=== PATIENT | male | born 1940 | race Caucasian/White ===

== ENCOUNTER 2018-02-06 23:29 | Inpatient (IN) ==
--- NOTE | 2018-02-07 00:25 | Emergency Department Note ---
Disposition Clinical Impression: Chest pain, rule out acute myocardial infarction, NSTEMI (non-ST elevated myocardial infarction) Disposition: Admitted As Inpatient Condition: Fair Referrals: Chris Chinchilla MD [Primary Care Provider] - Forms: ED Satisfaction Letter Time of Disposition: 01:26 Chest Pain HPI - General Chief Complaint: ED Chest Pain Stated Complaint: Cp/headache Time Seen by Provider: 02/06/18 23:37 Source: patient Limitations: no limitations Vital Signs Reviewed: Yes Nursing Notes Reviewed: Yes - History of Present Illness HPI Narrative: Patient is a 77-year-old male who presents to [facility] ED with a chief complaint of chest pain. States his symptoms started earlier today when he was standing in the kitchen. States he started getting flushed and felt warm and then got a headache so he took 2 aspirin. States the headache resolved but he then got sharp chest pains. States this was intermittent. He is currently chest pain-free. Patient was recently seen at [facility] and was hospitalized at [facility]. States he stayed there for 2 days and never saw any physician so he signed himself out AGAINST MEDICAL ADVICE. Pt complaint: chest pain Onset (ago): hour(s) Duration: intermittent Onset: during rest Pain Location: left chest Severity scale (1-10): 0 - Related Data Home Medications Medication Instructions Recorded Confirmed Albuterol Sulfate [Proair 90 mcg IH Q2H PRN 05/31/15 08/30/16 Respiclick] Atorvastatin [Lipitor] 10 mg PO DAILY 05/31/15 02/03/18 Esomeprazole Magnesium [Nexium] 40 mg PO DAILY 05/31/15 02/03/18 Nitroglycerin [Nitrostat] 0.4 mg SL Q5-6MIN PRN 05/31/15 02/03/18 Spironolactone [Aldactone] 25 mg PO BID 05/31/15 02/03/18 Tamsulosin [Flomax] 0.4 mg PO DAILY 05/31/15 02/03/18 clonazePAM [Klonopin] 0.5 mg PO HS 05/31/15 02/03/18 predniSONE [PredniSONE] 2 mg PO DAILY 05/31/15 02/03/18 Aspirin Buffered 325 mg Tab 1 tab PO DAILY 02/03/18 02/03/18 Allergies Allergy/AdvReac Type Severity Reaction Status Date / Time Iodinated Contrast- Oral and Allergy Swelling Verified 05/31/15 08:21 IV Dye of [Iodinated Contrast Media - Lip/Tongue/Throat IV Dye] All systems ED: reviewed and negative except as stated. Chest Pain PMH - Past Medical History Medical history: Reports: COPD, coronary artery disease, hyperlipidemia, hypertension, myocardial infarction, other Surgical history: Reports: coronary bypass (CABG) Psychiatric history: Reports: anxiety, depression - Social History Smoking Status: Former smoker Alcohol use: Reports: none Drug use: Reports: none Physical Exam - General Limitations: no limitations General appearance: alert, in no apparent distress - Head Head exam: atraumatic, normocephalic, normal inspection - Eye Eye exam: Present: EOMI - ENT ENT exam: normal exam, normal oropharynx, mucous membranes moist - Neck Neck exam: Present: normal inspection, full ROM, trachea midline - Chest Chest inspection: Present: normal inspection, symmetric chest wall rise - Respiratory Respiratory exam: Present: normal lung sounds bilaterally - Cardiovascular Cardiovascular exam: Present: regular rate, normal rhythm, normal heart sounds - Abdominal Exam Abdominal exam: Present: soft, Non-Tender. Absent: tenderness, distention, guarding, rebound, rigidity - Extremities Exam Extremities exam: Present: normal inspection, full ROM. Absent: tenderness, pedal edema - Neurological Exam Neurological exam: Present: alert, oriented X3 - Psychiatric Psychiatric exam: Present: normal affect, normal mood - Skin Skin exam: Present: warm, dry, intact, normal color Course Course Narrative: Patient seen and examined. Chest pain since earlier today. Patient did have a headache at the time but this has resolved. Cardiopulmonary workup initiated. - Reevaluation(s) Reevaluation #1: Troponin elevated at 0.14. This appears unchanged from 3 days ago when it was elevated on February 03. His EKG shows signs of inferior lateral ST depression but this also appears unchanged. I discussed with the mortuary beautician Dr. Octavio Mcmillan who does recommend putting patient on a heparin drip. This has been ordered. We will admit to hospitalist for NSTEMI. Time: 01:24 Reevaluation #2: Discussed with the hospitalist Dr. Eldridge who has accepted patient for admission. Time: 01:55 Vital Signs Temperature 97.9 F 02/06/18 23:39 Pulse Rate 66 02/06/18 23:39 Respiratory Rate 16 02/06/18 23:39 Blood Pressure 168/66 02/06/18 23:39 O2 Sat by Pulse Oximetry 96 02/06/18 23:39 Temperature 97.9 F 02/06/18 23:39 Pulse Rate 61 02/07/18 01:52 Respiratory Rate 16 02/07/18 01:52 Blood Pressure 145/88 02/07/18 01:52 O2 Sat by Pulse Oximetry 96 02/07/18 01:52 Oxygen Delivery Oxygen Delivery Room Air Chest Pain - Medical Records Medical records reviewed: Yes I reviewed the patient's medical records. - Lab Data Lab results reviewed: Yes I reviewed the patient's lab results. Result diagrams: 02/07/18 00:05 02/07/18 00:05 Lab Results 02/07/18 02/07/18 02/07/18 Range/Units 00:05 00:05 00:05 WBC 7.7 (4.3-11.1) K/mcL RBC 4.37 (4.19-5.50) M/mcL Hgb 13.5 (12.9-16.9) g/dL Hct 40.0 (37.5-50.1) % MCV 91.5 (83.0-100.0) fL MCH 30.9 (28.0-33.3) pg MCHC 33.8 (31.6-35.5) g/dL RDW 13.1 (11.5-14.5) % Plt Count 163 (140-400) K/mcL MPV 9.8 (9.4-12.4) fL Immature Gran % 0.9 (0-4) % Seg Neutrophils % 57.9 % Lymphocytes % 26.4 % Monocytes % 12.2 % Eosinophils % 2.2 % Basophils % 0.4 % Neutrophils # 4.4 (1.6-8.9) K/mcL Lymphocytes # 2.0 (0.6-4.6) K/mcL Monocytes # 0.9 (0.0-1.3) K/mcL Eosinophils # 0.2 (0.0-0.6) K/mcL Basophils # 0.0 (0.0-0.2) K/mcL PT 11.6 (9.4-12.1) Seconds INR 1.0 APTT 28.6 (26.0-36.0) Seconds Sodium 137 (136-145) mEq/L Potassium 4.1 (3.5-5.1) mEq/L Chloride 106 (98-107) mEq/L Carbon Dioxide 23 (23-29) mEq/L BUN 20 (8-23) mg/dL Creatinine 1.32 H (0.70-1.30) mg/dL Est GFR ( Amer) > 60 (> 60) Est GFR (Non-Af Amer) 53 L (> 60) BUN/Creatinine Ratio 15 (6-26) Glucose 111 H (70-105) mg/dL Calculated Osmolality 287 (280-300) Calcium 8.9 (8.6-10.3) mg/dL Troponin I 0.14 H* (< 0.04) ng/mL - Radiology Data Radiology results reviewed: Yes I reviewed the patient's radiology results. Chest X-Ray 02/07/18 00:20 IMPRESSION: Stable portable study. D/ / Keisha Coker Cha, MD / Keisha Coker Cha, MD Interpreting Provider: Keisha Coker Cha, MD - EKG Data EKG attestation: Yes I reviewed and interpreted this EKG. EKG results narrative: EKG done at 2356 shows normal sinus rhythm with a rate of [address] elevation. Mild ST depression noted in leads 2, 3, aVF with inverted T waves. Also mild ST depression noted in leads V4 through V6. This appears unchanged from prior EKG done 02/03/2018. Heart Score - Score History: Slightly Suspicious EKG: Non Specific repolarisation Disturbance Age: Greater than 65 Risk Factors: Equal/Greater than 3 risk factor or history of atherosclerotic disease Troponin: Greater than 3x normal limit HEART Score Total: 7 Attestation Statement - Attestation Attestation: I, Octavio Perez, examined this patient and my medical decision-making was reviewed with the PHYSICAL THERAPIST AIDE/PA/Advanced Practice Nurse/Resident Physician. I agree with the documented findings, disposition and treatment plan as described except to the extent set forth below. 77-year-old male presents emergency Department with concerns of acute onset chest pain. Patient states he is been admitted several times over the past few months for similar pain. Patient states his enzymes were elevated 5 days ago when he was evaluated at [facility]. Patient states that from [facility] emergency department he was transferred to [facility] for further cardiology evaluation however he "did not see a physician" so he signed himself out AGAINST MEDICAL ADVICE. Patient states he was cooking today when he had acute onset of pressure in the center of his chest. He states he had not had mild associated nausea. Patient presents to the emergency department today for further evaluation. He has a history of multiple MIs in the past as well as coronary artery bypass graft surgery. Chest pain resolved after taking aspirin. Patient also noted a headache at the time of his chest pain which has also since resolved. No recent trauma. Initial EKG showed normal sinus rhythm with rate of 60 without evidence of STEMI or other dysrhythmia. We will obtain labs for further cardiac evaluation and patient will likely be admitted for further care and evaluation of possible ACS.
[2018-02-07 00:39] LABS: Prothrombin Time 11.6 Seconds (9.4-12.1)
[2018-02-07 00:42] LABS: Activated Partial Thrombo Time 28.6 Seconds (26.0-36.0)
[2018-02-07 00:51] LABS: Basophils % 0.4 %; Eosinophils # 0.2 K/mcL (0.0-0.6); Eosinophils % 2.2 %; Hemoglobin 13.5 g/dL (12.9-16.9); Immature Granulocytes % 0.9 % (0-4); Lymphocytes % 26.4 %; Mean Corpuscular HGB Conc 33.8 g/dL (31.6-35.5); Mean Corpuscular Hemoglobin 30.9 pg (28.0-33.3); Mean Corpuscular Volume 91.5 fL (83.0-100.0); Mean Platelet Volume 9.8 fL (9.4-12.4); Monocytes # 0.9 K/mcL (0.0-1.3); Monocytes % 12.2 %; Neutrophils # 4.4 K/mcL (1.6-8.9); Platelet Count 163 K/mcL (140-400); Red Blood Count 4.37 M/mcL (4.19-5.50); Red Cell Distribution Width 13.1 % (11.5-14.5); Segmented Neutrophils % 57.9 %
[2018-02-07 01:07] LABS: Chloride 106 mEq/L (98-107); Potassium 4.1 mEq/L (3.5-5.1); Sodium 137 mEq/L (136-145); Troponin I 0.14 ng/mL (< 0.04)
[2018-02-07] MEDS ORDERED: *HR* Heparin 5,000 UNIT/ML VIAL IVP PRN ×2 (01:20)
[2018-02-07] MEDS ORDERED: *HR* Heparin 5,000 UNIT/ML VIAL IVP ONE (01:20)
[2018-02-07 01:43] LABS: BUN/Creatinine Ratio 15 (6-26); Blood Urea Nitrogen 20 mg/dL (8-23); Calcium 8.9 mg/dL (8.6-10.3); Carbon Dioxide 23 mEq/L (23-29); Glucose 111 mg/dL (70-105); Osmolality,Calculated 287 (280-300); eGFR For Non-African Americans 53 (> 60)
[2018-02-07] MEDS: Heparin 25,000 UNIT/500 ML D5W 25,000 UNIT/500 ML BAG IVC SCH (01:53)
[2018-02-07] MEDS ORDERED: Naloxone 0.4 MG/ML INJ IVP PRN (04:46)
--- NOTE | 2018-02-07 08:15 | Internal Med History&Physical ---
Date of Encounter: 02/07/18 Time of Encounter: 03:30 Internal Medicine - H&P: HPI Chief complaint: NSTEMI Admitted From: Emergency Dept Plans for Post Hospital Care: Home History of present illness: Mr. Elliott is a 77 year old male Patient presented to the ER for chest pain. He states that he originally went to the [place] ER 3 days ago for chest pain, was started on a heparin drip then transferred to [facility]. He says that he was inpatient for 2 days, but left AMA because he never saw a doctor and he was frustrated. The night of his admission he says he was in the kitchen when he got a headache, started to feel hot and felt weak. His chest pain was also present, non- radiating stabbing in nature. He then called his neighbor who transported him to [place]. In the ER his troponin was elevated at 0.14, creatinine was elevated to 1.32, GFR was at baseline, chest x-ray was stable, EKG was NSR with no ST elevations but noted depressions and T wave inversions unchanged from prior EKG 02/03/18. He was started on a heparin drip, cardiology was notified, and he was admitted for further management of his chest pain. Upon my assessment, patient is resting comfortably in bed. He denies nausea, vomiting, diarrhea, constipation. His chest pain as improved. Past Med Surg Social Fam HX - Past Medical History Medical history: COPD, coronary artery disease, hyperlipidemia, hypertension, myocardial infarction, other Additional medical history: [place] last was in 2002 Psychiatric history: anxiety, depression - Past Surgical History Surgical History: coronary bypass (CABG) Additional surgical history: open heart surgery - Social History Smoking Status: Former smoker Smokeless Tobacco Status: Yes Alcohol use: none Drug use: none Internal Medicine - H&P: Meds Albuterol Sulfate [Proair Respiclick] 90 mcg IH Q2H PRN 05/31/15 [History] Atorvastatin [Lipitor] 10 mg PO DAILY 05/31/15 [History] Esomeprazole Magnesium [Nexium] 40 mg PO DAILY 05/31/15 [History] Nitroglycerin [Nitrostat] 0.4 mg SL Q5-6MIN PRN 05/31/15 [History] Spironolactone [Aldactone] 25 mg PO BID 05/31/15 [History] Tamsulosin [Flomax] 0.4 mg PO DAILY 05/31/15 [History] clonazePAM [Klonopin] 0.5 mg PO HS 05/31/15 [History] predniSONE [PredniSONE] 2 mg PO DAILY 05/31/15 [History] Aspirin Buffered 325 mg Tab 1 tab PO DAILY 02/03/18 [History] 3 Allergy/AdvReac Type Severity Reaction Status Date / Time Iodinated Contrast- Oral and Allergy Swelling Verified 02/07/18 02:33 IV Dye of [Iodinated Contrast Media - Lip/Tongue/Throat IV Dye] shellfish derived Allergy Swelling Verified 02/07/18 02:33 of Lip/Tongue/Throat All Systems PM: A 10-system review of systems was performed and is negative for pertinent findings except as documented above in the HPI. - Constitutional Vitals: Temp Pulse Resp BP Pulse Ox 97.9 F 70 18 118/54 98 02/07/18 07:23 02/07/18 07:23 02/07/18 07:23 02/07/18 07:23 02/07/18 07:23 General appearance: Present: cooperative, pleasant, answers questions appropriately Exam: as above - Eye Eye exam: Present: EOMI, normal appearance - Respiratory Respiratory exam: Present: CTAB. Absent: chest wall tenderness, respiratory distress, wheezes - Cardiovascular Cardiovascular exam: Present: RRR. Absent: diastolic murmur, systolic murmur - GI/Abdominal GI/Abdominal exam: Present: soft, no peritoneal signs. Absent: tenderness - Extremities Exam Extremities exam: Present: warm, radial pulses palpable and symmetrical. Absent : calf tenderness, joint swelling, pedal edema, tenderness - Neurological Exam Neurological exam: Present: no focal deficits, strengths equal and symetr throughout. Absent: motor sensory deficit, facial droop, speech deficit - Skin Skin exam: Present: dry, normal color, warm Internal Med - H&P Results - Labs CBC & Chem 7: 02/07/18 00:05 02/07/18 00:05 Labs: Cardiac Enzymes 02/07/18 Range/Units 05:48 Troponin I 0.15 H* (< 0.04) ng/mL - Assessment and plan (1) NSTEMI (non-ST elevated myocardial infarction) Current Visit: Yes Status: Acute Assessment and plan: Some ST changes, no elevations on EKG. Heparin drip started. Cardiology consult called from the ER. Follow up management recommendations from cardiology. Trend troponins ekg monitor tech. (2) Arthritis Current Visit: Yes Status: Acute Assessment and plan: Takes prednisone 2mg for this. Continue home meds when taking PO (3) HLD (hyperlipidemia) Current Visit: Yes Status: Acute Assessment and plan: Takes atorvastatin Hold until taking PO Qualifiers: Qualified Code(s): E78.2 - Mixed hyperlipidemia (4) GERD (gastroesophageal reflux disease) Current Visit: Yes Status: Acute Assessment and plan: Takes nexium, Hold until taking PO Qualifiers: Qualified Code(s): K21.9 - Gastro-esophageal reflux disease without esophagitis - Time Spent With Patient Total time spent is greater than 50% in coordination of care (as documented) at patient's floor/unit and/or counseling patient: 25 - 35 minutes
[2018-02-07] MEDS ORDERED: clonazePAM 0.5 MG TABLET PO PRN ×2 (10:03→12:13)
[2018-02-07] MEDS ORDERED: Aspirin 325 MG TABLET PO SCH (10:15)
[2018-02-07] MEDS: Aspirin 325 MG TABLET PO SCH (11:59)
[2018-02-07] MEDS ORDERED: Albuterol 2.5 MG/3 ML NEBULIZER IH PRN (12:13)
--- NOTE | 2018-02-07 13:21 | Event Note ---
Date of Encounter: 02/07/18 Time of Encounter: 09:50 77-year-old male with history of CAD status post CABG, COPD, hypertension, who was admitted with intermittent chest pain for the last few days. Patient was admitted to [facility] 3 days ago with similar complaints, from where he left AGAINST MEDICAL ADVICE as he claimed no Dr. came to evaluate him. Seen and examined at bedside. Currently chest pain-free. No cough, shortness of breath. Patient is very hard of hearing. Chest- S1, S2 heard; Lungs are clear to auscultation B/L NSTEMI- suspected due to symptoms suggestive of unstable angina, troponin leak around 0.15, EKG changes of T-wave inversions in inferior and lateral leads. Started on anticoagulation with IV heparin drip per cardiology recommendations. Resume aspirin, statin and beta sommer. Cardiology has been consulted, follow-up recommendations. Chronic respiratory failure on home oxygen COPD CAD status post CABG Essential hypertension Hyperlipidemia Anxiety and depression
[2018-02-07] MEDS: Budesonide/Formoterol 80/4.5 MDI IH SCH (19:46)
[2018-02-08] MEDS: Heparin 25,000 UNIT/500 ML D5W 25,000 UNIT/500 ML BAG IVC SCH (01:20)
[2018-02-08 04:50] LABS: Basophils % 0.3 %; Eosinophils # 0.2 K/mcL (0.0-0.6); Eosinophils % 2.3 %; Hematocrit 39.6 % (37.5-50.1); Hemoglobin 13.3 g/dL (12.9-16.9); Immature Granulocytes % 0.4 % (0-4); Lymphocytes % 28.8 %; Mean Corpuscular HGB Conc 33.6 g/dL (31.6-35.5); Mean Corpuscular Hemoglobin 30.8 pg (28.0-33.3); Mean Corpuscular Volume 91.7 fL (83.0-100.0); Mean Platelet Volume 9.6 fL (9.4-12.4); Monocytes # 0.8 K/mcL (0.0-1.3); Monocytes % 10.9 %; Platelet Count 144 K/mcL (140-400); Red Blood Count 4.32 M/mcL (4.19-5.50); Segmented Neutrophils % 57.3 %
[2018-02-08 05:11] LABS: BUN/Creatinine Ratio 15 (6-26); Blood Urea Nitrogen 18 mg/dL (8-23); Calcium 8.9 mg/dL (8.6-10.3); Carbon Dioxide 25 mEq/L (23-29); Chloride 107 mEq/L (98-107); Glucose 132 mg/dL (70-105); Osmolality,Calculated 292 (280-300); Sodium 139 mEq/L (136-145); eGFR For Non-African Americans > 60 (> 60)
[2018-02-08] MEDS: Budesonide/Formoterol 80/4.5 MDI IH SCH ×2 (07:58→20:16)
[2018-02-08] MEDS: *HR* Digoxin 0.125 MG TABLET PO SCH (08:11)
[2018-02-08] MEDS: Aspirin 325 MG TABLET PO SCH (08:11)
--- NOTE | 2018-02-08 12:38 | Cardiology Consult Note ---
<Reagan Tran - Last Filed: 02/08/18 12:43> Date of Encounter: 02/08/18 Time of Encounter: 11:30 Assessment and Plan (1) NSTEMI (non-ST elevated myocardial infarction) Current Visit: Yes Status: Acute Troponin elevation at 0.14, 0.14, 0.15 in patient with known CAD. EKG shows Sr with diffuse ST changes. C/o chest pain prior to admit. Now pain free. TTE pending. [facility] discussed. R/B/A reviewed and he agrees to proceed. Continue heparin gtt. Asa, statin, and bb. IV dye allergy noted. We will pre- medicate. (2) CAD (coronary artery disease) Current Visit: Yes Status: Acute H/o CABG. Continue asa, statin, and bb. Qualifiers: Coronary Disease-Associated Artery/Lesion type: [place] artery [place] vs. transplanted heart: [place] heart Associated angina: angina presence unspecified Qualified Code(s): I25.10 - Atherosclerotic heart disease of [place] coronary artery without angina pectoris Discussion w patient/family: The assessment and plan as outlined above was discussed with the patient and/or family members who expressed understanding and agreement. All questions were answered. Thank you for involving us in the care of your patient. Please call with any questions. History of Present Illness Consult date: 01/07/18 Consult reason: NSTEMI Chief complaint: Chest pain History of present illness: Mr. Elliott is a 77 year old male withpast medical history significant for multiple [place] s/p CABG, COPD, HTN, HLD who presented with the c/o intermittent SOB and chest pain since last friday. States he was seen at OSH and left AMA after he felt no one was caring for him. He then decided to come to [facility]. Cardiology consulted for chest pain and troponin elevation. He is currently pain free. Reports symptoms with minimal activity. No recent cardiac work-up. Past Med Surg Social Fam HX - Past Medical History Attestation: Yes The following information was validated with the patient. Medical history: COPD, coronary artery disease, hyperlipidemia, hypertension, myocardial infarction, other Additional medical history: [place] last was in 2002 Psychiatric history: anxiety, depression - Past Surgical History Surgical History: coronary bypass (CABG) Additional surgical history: open heart surgery - Social History Smoking Status: Former smoker Smokeless Tobacco Status: Yes Alcohol use: none Drug use: none Medications and Allergies Albuterol Neb [Proventil Neb] 2.5 mg IH QID PRN 02/07/18 [History] Albuterol Sulfate [Ventolin Hfa] 2 puff IH Q4H PRN 02/07/18 [History] Aspirin Enteric Coated [Aspirin EC] 325 mg PO DAILY 02/07/18 [History] Atorvastatin [Lipitor] 10 mg PO HS 02/07/18 [History] Carvedilol [Coreg] 6.25 mg PO DAILY 02/07/18 [History] Cholecalciferol (D-3) [Vitamin D] 1,000 unit PO DAILY 02/07/18 [History] Digoxin [Lanoxin] 0.125 mg PO DAILY 02/07/18 [History] Esomeprazole Magnesium [Nexium] 20 mg PO DAILY 02/07/18 [History] Fluticasone/Salmeterol [Advair 250-50 Diskus] 1 puff IH BID 02/07/18 [History] Methocarbamol [Robaxin] 500 mg PO QID 02/07/18 [History] Naproxen [Naprosyn] 250 mg PO BID 02/07/18 [History] PredniSONE [Negrita] 5 mg PO DAILY 02/07/18 [History] Spironolactone [Aldactone] 25 mg PO DAILY 02/07/18 [History] Tamsulosin HCl [Flomax] 0.4 mg PO DAILY 02/07/18 [History] clonazePAM [Clonazepam] 0.5 mg PO BID PRN 02/07/18 [History] 3 Allergy/AdvReac Type Severity Reaction Status Date / Time Iodinated Contrast- Oral and Allergy Swelling Verified 02/07/18 02:33 IV Dye of [Iodinated Contrast Media - Lip/Tongue/Throat IV Dye] shellfish derived Allergy Swelling Verified 02/07/18 02:33 of Lip/Tongue/Throat All Systems Review: The remainder of the systems were reviewed and are negative Physical Examination Vital Signs, Last 4 Hours Temp Pulse Resp BP Pulse Ox 02/08/18 11:09 98.2 F 69 18 117/61 97 General: Conversant, No Apparent Distress, Other (dishevealed) HEENT: Atraumatic, Normocephaly, Mucus Membranes Moist Neck: No JVD, Normal carotid pulses Cardiac: Reg Rate and Rhythm, Normal S1 and S2, No Murmur Lungs: Normal Breath Sounds, No Wheeze, Rales, Rhonchi Neuro: Alert and responsive, No focal deficits noted Abdomen: Soft, Non-Tender Skin: No rashes noted on visualized skin Musculoskeletal: No Chest Wall Tenderness Extremities: No Clubbing, No Cyanosis, No Edema, Normal Pulses Results 02/08/18 04:24 02/08/18 04:24 Lab Results 02/07/18 02/08/18 02/08/18 12:53 04:24 04:24 WBC 7.0 Hgb 13.3 Hct 39.6 Plt Count 144 Sodium 139 Potassium 4.0 Chloride 107 Carbon Dioxide 25 BUN 18 Creatinine 1.17 Glucose 132 H Calcium 8.9 Troponin I 0.15 H* - Imaging and Cardiology Echo: pending Consult Discharge Plan - Plan Referrals: Chris Chinchilla MD [Primary Care Provider] - <Octvaio Mcmillan Keny - Last Filed: 02/08/18 13:21> Date of Encounter: 02/08/18 - Attending Attestation I have personally performed a face to face evaluation on this patient. I have reviewed and agree with the care plan. History and Exam by me shows: Presents with somewhat atypical symptoms, flat elevation for troponin. Will proceed with left heart cath in AM. Assessment and Plan Discussion w patient/family: The assessment and plan as outlined above was discussed with the patient and/or family members who expressed understanding and agreement. All questions were answered. Thank you for involving us in the care of your patient. Please call with any questions. History of Present Illness History of present illness: Mr. lEliott is a 77 year old male All Systems Review: The remainder of the systems were reviewed and are negative Physical Examination Vital Signs, Last 4 Hours Temp Pulse Resp BP Pulse Ox 02/08/18 11:09 98.2 F 69 18 117/61 97 Results 02/08/18 04:24 02/08/18 04:24 Lab Results 02/07/18 02/08/18 02/08/18 12:53 04:24 04:24 WBC 7.0 Hgb 13.3 Hct 39.6 Plt Count 144 Sodium 139 Potassium 4.0 Chloride 107 Carbon Dioxide 25 BUN 18 Creatinine 1.17 Glucose 132 H Calcium 8.9 Troponin I 0.15 H*
--- NOTE | 2018-02-08 14:58 | Internal Med Progress Note ---
Hospitalist Progress Note - Encounter Date of Encounter: 02/08/18 Time of Encounter: 10:40 - Subjective Interval History: Reports feeling well; denies chest pain, shortness of breath, palpitations, cough, fever/chills; - Exam Vitals: Temp Pulse Resp BP Pulse Ox 98.2 F 69 18 117/61 97 02/08/18 11:09 02/08/18 11:09 02/08/18 11:09 02/08/18 11:02/08/18 11:09 Exam: General: Well-developed male sitting up in bed in no acute distress Chest: Normal thoracic expansion. Normal breath sounds. Clear to auscultation. Heart: Normal S1 & S2; rhythmic. No rubs or murmurs. Abdomen: Non-distended, soft and nontender Extremities: No clubbing, cyanosis or edema. No calf tenderness. Normal distal pulses. Neurological: Awake, alert and oriented to person, place and time. No focal deficits. Psych: Affect appropriate. - Assessment and Plan (1) NSTEMI (non-ST elevated myocardial infarction) Current Visit: Yes Status: Acute Assessment and Plan: patient presented with symptoms of possible unstable angina, noted to have mild and adynamic Troponin elevation, around 0.15; case d/w Cardiology- continue IV Heparin drip for 48 hours, on ASA, statin, beta sommer; plan for possible LHC in am; continue Telemetry monitoring; f/up TTE; (2) Chronic respiratory failure Current Visit: Yes Status: Chronic Assessment and Plan: on home O2 due to underlying COPD; (3) COPD (chronic obstructive pulmonary disease) Current Visit: Yes Status: Chronic Assessment and Plan: not in acute exacerbation; continue PRN breathing treatments, ICS, supplemental O2; (4) Essential hypertension Current Visit: Yes Status: Chronic (5) Anxiety and depression Current Visit: Yes Status: Chronic (6) CAD (coronary artery disease) Current Visit: Yes Status: Chronic (7) GERD (gastroesophageal reflux disease) Current Visit: Yes Status: Chronic Assessment and Plan: continue PPI; (8) HLD (hyperlipidemia) Current Visit: Yes Status: Chronic Assessment and Plan: resume statin; - Time Spent with Patient Total time spent is greater than 50% in coordination of care (as documented) at patient's floor/unit and/or counseling patient: Internal Medicine: Result - Labs CBC & Chem 7: 02/08/18 04:24 02/08/18 04:24 Labs: Short CBC 02/08/18 Range/Units 04:24 WBC 7.0 (4.3-11.1) K/mcL Hgb 13.3 (12.9-16.9) g/dL Hct 39.6 (37.5-50.1) % Plt Count 144 (140-400) K/mcL Neutrophils # 4.0 (1.6-8.9) K/mcL BMP 02/08/18 04:24 Sodium 139 Potassium 4.0 Chloride 107 Carbon Dioxide 25 BUN 18 Creatinine 1.17 Glucose 132 H Calcium 8.9 Cardiac Enzymes 02/07/18 Range/Units 12:53 Troponin I 0.15 H* (< 0.04) ng/mL - ABG Interpretation ABG results: PT/INR, D-dimer PT 11.6 Seconds (9.4-12.1) 02/07/18 00:05 Consult Discharge Plan - Plan Referrals: Chris Chinchilla MD [Primary Care Provider] - (2) Chronic respiratory failure Qualifiers: Respiratory failure complication: hypoxia Qualified Code(s): J96.11 - Chronic respiratory failure with hypoxia (3) COPD (chronic obstructive pulmonary disease) Qualifiers: COPD type: unspecified COPD Qualified Code(s): J44.9 - Chronic obstructive pulmonary disease, unspecified (6) CAD (coronary artery disease) Qualifiers: Coronary Disease-Associated Artery/Lesion type: [place] artery [place] vs. transplanted heart: [place] heart Associated angina: without angina Qualified Code(s): I25.10 - Atherosclerotic heart disease of [place] coronary artery without angina pectoris (7) GERD (gastroesophageal reflux disease) Qualifiers: Esophagitis presence: esophagitis presence not specified Qualified Code(s): K21.9 - Gastro-esophageal reflux disease without esophagitis (8) HLD (hyperlipidemia) Qualifiers: Hyperlipidemia type: unspecified Qualified Code(s): E78.5 - Hyperlipidemia, unspecified
[2018-02-08] MEDS ORDERED: Ipratropium/Albuterol Neb 3 ML IH PRN (15:04)
[2018-02-09] MEDS: Heparin 25,000 UNIT/500 ML D5W 25,000 UNIT/500 ML BAG IVC SCH (01:37)
[2018-02-09 05:42] LABS: BUN/Creatinine Ratio 13 (6-26); Blood Urea Nitrogen 16 mg/dL (8-23); Calcium 9.1 mg/dL (8.6-10.3); Carbon Dioxide 27 mEq/L (23-29); Chloride 105 mEq/L (98-107); Glucose 173 mg/dL (70-105); Osmolality,Calculated 289 (280-300); Potassium 3.9 mEq/L (3.5-5.1); Sodium 137 mEq/L (136-145); eGFR For Non-African Americans 57 (> 60)
[2018-02-09] MEDS: *HR* Digoxin 0.125 MG TABLET PO SCH (08:03)
[2018-02-09] MEDS: Aspirin 325 MG TABLET PO SCH (08:04)
[2018-02-09] MEDS: Budesonide/Formoterol 80/4.5 MDI IH SCH ×2 (10:45→20:04)
--- NOTE | 2018-02-09 11:01 | Cardiology Progress Note ---
Date of Encounter: 02/09/18 Time of Encounter: 11:01 Assessment and Plan (1) NSTEMI (non-ST elevated myocardial infarction) Current Visit: Yes Status: Acute Troponin elevation at 0.14, 0.14, 0.15 in patient with known CAD. EKG shows Sr with diffuse ST changes. C/o chest pain prior to admit. Now pain free. TTE LVEF 45-50%. Mild LV segmental wall motion abnormality. Mild left ventricular diastolic dysfunction. RV size is not well visualized. Normal function by Doppler. Mild tricuspid regurgitation. Mild pulmonic regurgitation. No pulmonary hypertension. Compared to TTE in 2014 EF mildly reduced. Previously 55%. [facility] discussed. R/B/A reviewed and he agrees to proceed. Continue heparin gtt. Asa, statin, and bb. IV dye allergy noted. We will pre-medicate today. Discussed with Dr. Zaldivar, he would like to start prednisone 13 hours prior to procedure, repeat at about 7 hours prior and one hour prior. Benadryl one hour prior to procedure. Patient agrees. (2) CAD (coronary artery disease) Current Visit: Yes Status: Chronic H/o CABG. Continue asa, statin, and bb. Qualifiers: Coronary Disease-Associated Artery/Lesion type: [place] artery [place] vs. transplanted heart: [place] heart Associated angina: without angina Qualified Code(s): I25.10 - Atherosclerotic heart disease of [place] coronary artery without angina pectoris Discussion w patient/family: The assessment and plan as outlined above was discussed with the patient and/or family members who expressed understanding and agreement. All questions were answered. Thank you for involving us in the care of your patient. Please call with any questions. Subjective Principal diagnosis: Chest pain Interval history: Mr. Elliott was ambulating in his room. Denies recurrent chest pain. Objective Vital Signs, Last 4 Hours Temp Pulse Resp BP Pulse Ox 02/09/18 10:47 20 95 02/09/18 07:17 97.7 F 65 20 113/74 95 General: Conversant, No Apparent Distress HEENT: Atraumatic, Normocephaly, Mucus Membranes Moist Neck: No JVD, Normal carotid pulses Cardiac: Reg Rate and Rhythm, Normal S1 and S2, No Murmur Lungs: Normal Breath Sounds, No Wheeze, Rales, Rhonchi Neuro: Alert and responsive, No focal deficits noted Abdomen: Soft, Non-Tender Skin: No rashes noted on visualized skin Musculoskeletal: No Chest Wall Tenderness Extremities: No Clubbing, No Cyanosis, No Edema, Normal Pulses Results 02/08/18 04:24 02/09/18 05:07 Lab Results 02/09/18 05:07 Sodium 137 Potassium 3.9 Chloride 105 Carbon Dioxide 27 BUN 16 Creatinine 1.23 Glucose 173 H Calcium 9.1 - Imaging and Cardiology Echo: report reviewed - EKG Interpretation EKG results cardiology: personally reviewed Consult Discharge Plan - Plan Referrals: Chris Chinchilla MD [Primary Care Provider] -
--- NOTE | 2018-02-09 14:41 | Internal Med Progress Note ---
Hospitalist Progress Note - Encounter Date of Encounter: 02/09/18 Time of Encounter: 10:30 - Subjective Interval History: Upset about not getting LHC done today; denies chest pain, dyspnea, palpitations ; resting in bed comfortably; - Exam Vitals: Temp Pulse Resp BP Pulse Ox 97.1 F L 65 20 134/64 96 02/09/18 12:18 02/09/18 12:18 02/09/18 12:18 02/09/18 12:18 02/09/18 12:18 Exam: General: Well-developed male lying in bed in no acute distress Chest: Normal thoracic expansion. Normal breath sounds. Clear to auscultation. Heart: Normal S1 & S2; rhythmic. No rubs or murmurs. Extremities: No clubbing, cyanosis or edema. No calf tenderness. Normal distal pulses. Neurological: Awake, alert and oriented to person, place and time. No focal deficits. Psych: Affect appropriate. - Assessment and Plan (1) NSTEMI (non-ST elevated myocardial infarction) Current Visit: Yes Status: Acute Assessment and Plan: patient presented with symptoms of possible unstable angina, noted to have mild and adynamic Troponin elevation, around 0.15; case d/w Cardiology- discontinue IV Heparin drip after 48 hours, continue ASA, statin, beta sommer; plan for possible LHC in am after premedicating for IV dye allergy; continue Telemetry monitoring; TTE shows EF 45-50%, mild LV segmental WMA, mild LV diastolic dysfunction; (2) Chronic respiratory failure Current Visit: Yes Status: Chronic Assessment and Plan: on home O2 due to underlying COPD; (3) COPD (chronic obstructive pulmonary disease) Current Visit: Yes Status: Chronic Assessment and Plan: not in acute exacerbation; continue PRN breathing treatments, ICS, supplemental O2; (4) Essential hypertension Current Visit: Yes Status: Chronic (5) Anxiety and depression Current Visit: Yes Status: Chronic (6) CAD (coronary artery disease) Current Visit: Yes Status: Chronic (7) GERD (gastroesophageal reflux disease) Current Visit: Yes Status: Chronic (8) HLD (hyperlipidemia) Current Visit: Yes Status: Chronic - Time Spent with Patient Total time spent is greater than 50% in coordination of care (as documented) at patient's floor/unit and/or counseling patient: Plan of Care Discussed with: patient Internal Medicine: Result - Labs CBC & Chem 7: 02/08/18 04:24 02/09/18 05:07 Labs: BMP 02/09/18 05:07 Sodium 137 Potassium 3.9 Chloride 105 Carbon Dioxide 27 BUN 16 Creatinine 1.23 Glucose 173 H Calcium 9.1 - ABG Interpretation ABG results: PT/INR, D-dimer PT 11.6 Seconds (9.4-12.1) 02/07/18 00:05 - Impressions Impressions Echocardiogram 02/08/18 09:30 Impressions: LVEF 45-50%. Mild LV segmental wall motion abnormality. Mild left ventricular diastolic dysfunction. RV size is not well visualized. Normal function by Doppler. Mild tricuspid regurgitation. Mild pulmonic regurgitation. No pulmonary hypertension. Left Ventricular Wall Motion: Rest Echo Findings The mid inferior lateral and basal inferior lateral duran were hypokinetic. All other wall segments showed normal motion. Findings: Study Quality * Technically adequate exam. ECG Findings * Normal sinus rhythm. Left Ventricle * LVEF 45-50%. * Mild left ventricular diastolic dysfunction. * Normal LV wall thickness and chamber size. Right Ventricle * RV size is not well visualized. Normal function by Doppler. Left Atrium * Moderately dilated left atrium. Right Atrium * Normal right atrial size. Mitral Valve * Normal mitral valve structure. * No mitral stenosis. * Trace mitral regurgitation. Aortic Valve * Trace aortic regurgitation. * Trileaflet aortic valve. * No aortic stenosis. Tricuspid Valve * Normal tricuspid valve structure. * Mild tricuspid regurgitation. Pulmonic Valve * No pulmonic stenosis. * Mild pulmonic regurgitation. * Pulmonic valve is not well visualized. Pulmonary Artery * Normal visualized portions of the main pulmonary artery. Aorta * Normally sized aortic root. Pericardium * There is no pericardial effusion present. Interatrial Septum * Interatrial septum not well evaluated. IVC * The IVC is not well evaluated. Consult Discharge Plan - Plan Referrals: Chris Chinchilla MD [Primary Care Provider] - (2) Chronic respiratory failure Qualifiers: Respiratory failure complication: hypoxia Qualified Code(s): J96.11 - Chronic respiratory failure with hypoxia (3) COPD (chronic obstructive pulmonary disease) Qualifiers: COPD type: unspecified COPD Qualified Code(s): J44.9 - Chronic obstructive pulmonary disease, unspecified (6) CAD (coronary artery disease) Qualifiers: Coronary Disease-Associated Artery/Lesion type: [place] artery [place] vs. transplanted heart: [place] heart Associated angina: without angina Qualified Code(s): I25.10 - Atherosclerotic heart disease of [place] coronary artery without angina pectoris (7) GERD (gastroesophageal reflux disease) Qualifiers: Esophagitis presence: esophagitis presence not specified Qualified Code(s): K21.9 - Gastro-esophageal reflux disease without esophagitis (8) HLD (hyperlipidemia) Qualifiers: Hyperlipidemia type: unspecified Qualified Code(s): E78.5 - Hyperlipidemia, unspecified
[2018-02-09] MEDS ORDERED: predniSONE 20 MG TABLET PO ONE (20:00)
[2018-02-10] MEDS: Heparin 25,000 UNIT/500 ML D5W 25,000 UNIT/500 ML BAG IVC SCH (01:43)
[2018-02-10] MEDS ORDERED: predniSONE 20 MG TABLET PO ONE ×3 (02:00→10:00)
[2018-02-10 05:37] LABS: BUN/Creatinine Ratio 13 (6-26); Blood Urea Nitrogen 16 mg/dL (8-23); Calcium 9.4 mg/dL (8.6-10.3); Carbon Dioxide 22 mEq/L (23-29); Chloride 105 mEq/L (98-107); Glucose 233 mg/dL (70-105); Osmolality,Calculated 293 (280-300); Potassium 4.4 mEq/L (3.5-5.1); Sodium 137 mEq/L (136-145); eGFR For Non-African Americans 59 (> 60)
[2018-02-10] MEDS: Aspirin 325 MG TABLET PO SCH (08:15)
[2018-02-10] MEDS: *HR* Digoxin 0.125 MG TABLET PO SCH (08:15)
[2018-02-10] MEDS ORDERED: 0.9 % Sodium Chloride 1,000 ML ONE ×2 (10:27→10:36)
[2018-02-10] MEDS ORDERED: ISOVUE-370 200 ML INFUS..BTL IV ONE ×2 (10:28→12:03)
[2018-02-10] MEDS ORDERED: Heparin 1,000 UNITS/500 mL 500 ML ONE (10:28)
[2018-02-10] MEDS ORDERED: Nitroglycerin 1,000 MCG/10 ML VIAL IV ONE (10:28)
[2018-02-10] MEDS ORDERED: *HR* Heparin 10,000 UNIT/10 ML VIAL ONE (10:28)
--- NOTE | 2018-02-10 10:37 | History & Physical Report ---
Date of Encounter: 02/10/18 Time of Encounter: 10:35 24 Hour HP Update - Instructions Instructions: If the History and Physical is less than 30 days old and was completed prior to A.M. admission and or procedure and has NOT been updated on calendar day of procedure please complete this update prior to performing procedure. - Update Patient reports changes in Medical Condition: No Changes in examination, assessment, or condition: No Changes in Medication: No Preop tests/diagnostics Reviewed: Yes Surgery Remains Indicated: Yes Consent for Planned Operative Procedure(s) Verified: Yes - Pre-Operative Checklist Preoperative Checklist Indicated: No Prophylactic Antibiotic Ordered: No Home Medications Include Beta Pura: Yes Beta Pura Taken Today (Day of Surgery): Yes Beta Pura Taken Yesterday (Day Prior to Surgery): Yes Is VTE Prophylaxis Indicated?: NO
--- NOTE | 2018-02-10 10:38 | Pre-Sedation Evaluation ---
Pre-sedation evaluation - Pre-sedation checklist Date of procedure: 02/09/18 Procedure: Heart Cath Recent Vitals: Last Vital Signs Temp 97.8 F 02/10/18 07:53 Pulse 82 02/10/18 07:53 Resp 16 02/10/18 07:53 BP 142/73 02/10/18 07:53 Pulse Ox 95 02/10/18 07:53 H&P (including ROS) documented in medical record: Yes Previous reaction to sedatives/anesthetics: No Dietary Status: NPO after Midnight Airway Assessment: Patient can open mouth completely, TMJ function normal, Micrognathia (under-bite, receding chin) absent, Neck with adequate range of motion Dentition: poor dentition Possible difficult airway: No ASA Classification *see protocol: CLASS II-Mild systemic disease Plan of Care: Pt appropriate candidate for procedure/moderate/conscious sedation , Risks/benefits of procedure/sedation discussed w/ patient/family Cardiac Registry (Cardio Only) - Functional Capacity Functional Capacity: < 4 METS - Clincal Frailty Scale Clinical Frailty Scale: Vulnerable
[2018-02-10] MEDS: Budesonide/Formoterol 80/4.5 MDI IH SCH ×2 (10:54→19:58)
[2018-02-10] MEDS ORDERED: *HR* FentaNYL (PF) 100 MCG/2 ML VIAL ONE (10:57)
[2018-02-10] MEDS ORDERED: methylPREDNISolone 125 MG/2 ML VIAL ONE (10:57)
[2018-02-10] MEDS ORDERED: *HR* Midazolam HCl 2 MG/2 ML VIAL ONE (10:57)
[2018-02-10] MEDS ORDERED: Nitroglycerin 0.4 MG TAB.SUBL SL PRN (11:59)
[2018-02-10] MEDS ORDERED: 0.9 % Sodium Chloride 1,000 ML IVC SCH (12:00)
[2018-02-10] MEDS ORDERED: *HR* Ticagrelor 90 MG TABLET ONE ×2 (12:02)
[2018-02-10] MEDS ORDERED: *HR* Bivalirudin 250 MG VIAL IVC ONE (14:28)
--- NOTE | 2018-02-10 15:17 | Invasive Diagnostic Lab Proc ---
Name: Peng Elliott Dahlgren Date of Study: 02/10/2018 Date: 1940 Ht: 72.8in Medical Record#: [id number] Age: 77 Wt: 218.26lb Gender: Male BSA: 2.23 Order #: [id number] BMI: 28.93 Physicians Procedure Physician: Mary Mcmillan MD, [facility] Referring MD: Referring MD: Staff Name Position Time In Samuel Lopez RT (R) Monitor 10:34 AM Selene Ambriz RN Benefit Specialist 10:35 AM Bhakti Edwards RT (R) Scrub 10:35 AM Indications Indication Non-Stemi Procedures Performed Procedure L HRT ART/GRFT ANGIO PRQ CARD XIOMY STENT W/ANGIO 1 VSL Pre-Procedure Checklist Informed consent is complete signed and on chart. H&P is on chart. ID band is on and ID verified with patient. Patient NPO for procedure The procedure was described for the patient and questions were answered. Blood Pressure: 113/60 ECG is on chart. Rhythm: NSR Plan of Care Patient will tolerate the procedure without complications. Adequate level of comfort will be maintained. Hemodynamics will remain stable Patient will recover from procedure without complications. Respiratory function will be maintained. Cardiac rhythm will remain stable. Patient temperature will be maintained. Patient and/or family have verbalized understanding of the procedure. Patient Education Chief Complaint/Reason for Test: Cardiac Cath Developmental Category: Geriatric (65+ years) Developmentally Appropriate for Age: Yes Learning Barriers: None Education Needs: Procedure Education Method: Verbal Information Taught: Cardiac Cath Educational Evaluation: Able to repeat information Intravenous Access Time IV Size Location DC'd Fluid/Drip Rate Units RN 10:33 AM 18g 1 06/05" Patent On Arrival Rt Arm 0.9NaCl 25 ml/hr Selene Ambriz RN Allergies Trimethoprim Sulfamethoxazole shellfish derived Contrast Media, Iodine Related Tiotropium Duloxetine Vital Signs Time BP (mmHg) HR (bpm) O2 Sat. RR (bpm) LOC 10:34 AM 103 / 54 69 94 % 16 5 = Fully awake and oriented or at pre-proc level 10:35 AM / % 5 = Fully awake and oriented or at pre-proc level 10:35 AM / % 5 = Fully awake and oriented or at pre-proc level 10:52 AM / % 4 = Oriented but drowsy 11:07 AM / % 4 = Oriented but drowsy 11:22 AM / % 4 = Oriented but drowsy 11:37 AM / % 5 = Fully awake and oriented or at pre-proc level 10:57 AM 138 / 76 77 99 % 15 11:02 AM 152 / 79 74 99 % 16 11:07 AM 126 / 69 81 96 % 10 11:12 AM 106 / 66 81 95 % 10 11:17 AM 113 / 60 77 95 % 12 11:22 AM 126 / 62 83 95 % 10 11:27 AM 122 / 63 81 95 % 11 11:32 AM 122 / 63 79 96 % 11 11:37 AM 124 / 66 80 96 % 10 11:42 AM 135 / 77 80 97 % 11 11:47 AM 113 / 58 84 95 % 10 11:52 AM 105 / 63 84 95 % 12 12:16 PM 131 / 79 84 95 % 12 12:33 PM 129 / 72 78 97 % 16 5 = Fully awake and oriented or at pre-proc level 12:48 PM 130 / 71 75 97 % 18 5 = Fully awake and oriented or at pre-proc level 01:10 PM 134 / 75 77 96 % 16 5 = Fully awake and oriented or at pre-proc level 01:25 PM 143 / 76 78 97 % 16 5 = Fully awake and oriented or at pre-proc level 01:45 PM 124 / 83 78 97 % 18 5 = Fully awake and oriented or at pre-proc level 02:00 PM 168 / 85 77 97 % 16 5 = Fully awake and oriented or at pre-proc level 02:15 PM 170 / 89 81 97 % 18 5 = Fully awake and oriented or at pre-proc level 02:30 PM 152 / 73 78 97 % 16 5 = Fully awake and oriented or at pre-proc level 02:30 PM 152 / 75 80 97 % 16 5 = Fully awake and oriented or at pre-proc level 02:50 PM 156 / 86 80 97 % 16 5 = Fully awake and oriented or at pre-proc level Procedural Medications Time Medication Dose Units Method Given By 10:54 AM Oxygen 2 L/min nasal cannula Selene Ambriz RN 10:59 AM Solu-medrol 125 mg Intravenous Selene Ambriz RN 11:00 AM Benadryl 25 mg Intravenous Selene Ambriz RN 11:01 AM Versed 1 mg Intravenous Selene Ambriz RN 11:01 AM Fentanyl 25 mcg Intravenous Selene Ambriz RN 11:13 AM Lidocaine 2% 18 ml Subcutaneous Mary Mcmillan MD, FAC 11:33 AM Angiomax 0.75mg/kg bolus: 16 ml Intravenous Selene Ambriz RN 11:34 AM Angiomax 1.75mg/kg/hr: 35 ml/hr Intravenous Selene Ambriz RN 11:42 AM Nitroglycerin 200 mcg Intracoronary Mary Mcmillan MD, FACC 11:48 AM Nitroglycerin 200 mcg Intracoronary Mary Mcmillan MD, FACC 11:59 AM Brilinta 180 mg Orally Selene Ambriz RN 12:30 PM Angiomax Caterina Ellis RN ASA Classification: CLASS III- Severe systemic disease (i.e. prior AMI, diabetes with vascular complications, morbid obesity) Maura Score Preprocedure Postprocedure Activity 2- Moves 4 extremities sustained head lift Activity 2- Moves 4 extremities sustained head lift Circulation 2- SBP +/= 20 points of pre-anesthetic level Circulation 2- SBP +/= 20 points of pre-anesthetic level Consciousness 2- Awake and alert oriented x 3 Consciousness 2- Awake and alert oriented x 3 O2 Saturation 2- Able to maintain O2 satruation of 92% on room air O2 Saturation 2- Able to maintain O2 satruation of 92% on room air Respiratory 2- Able to deep breathe and cough well Respiratory 2- Able to deep breathe and cough well Total Score 10 Total Score 10 Contrast Agent: Isovue Diagnostic Contrast: 189 ml Total Contrast: 189 ml Fluoro Dose: 9775 mGy Procedure Log Time Note Enter By 10:26 AM CathStat 10:34 AM Pt arrived to metallurgy laboratory technician 2 at 10:34 [email or web address] 10:34 AM Patient charges- Angio tray pack, Navilyst 3mm J, Pulse Oximetry and ACIST tubing and transducer [email or web address] 10:35 AM Samuel Lopez RT (R) Position: Monitor Time in: 10:34 [email or web address] 10:35 AM Selene Ambriz RN Position: Benefit Specialist Time in: 10:35 [email or web address] 10:35 AM Bhakti Edwards RT (R) Position: Scrub Time in: 10:35 [email or web address] 10:35 AM Case Delayed No [email or web address] 10:35 AM Time: 10:35 Patient comfortable and pain free: Yes [email or web address] 10:35 AM Time: 10:35LOC: 5 = Fully awake and oriented or at pre-proc level [email or web address] 10:35 AM Clinical Presentation: Non-STEMI [email or web address] 10:52 AM Time: 10:35LOC: 5 = Fully awake and oriented or at pre-proc level [email or web address] 10:52 AM Time: 10:35 Patient comfortable and pain free: Yes [email or web address] 10:52 AM Physician arrived 10: [email or web address] 10:52 AM Meet and greet completed [email or web address] 10:52 AM Sign in performed according to hospital policy. [email or web address] 10:52 AM Procedure start : [email or web address] 10:54 AM ASA Class CLASS III- Severe systemic disease (i.e. prior AMI, diabetes with vascular complications, morbid obesity) [email or web address] :54 AM Time: :54 Oxygen on at 2 L/min per nasal cannula by Selene Ambriz RN [facility] 10:54 AM Hair removed from procedure site in procedure lab using clippers. Bilateral groin prepped with Chloraprep by Bhakti Edwards), then patient was draped. Skin intact. [email or web address] 10:56 AM Vitals capture started with the following parameters, Patient=Adult, Interval=5 min, Initial Ztlhxzhe=612 mmHg, Deflation Rate=5 mmHg, Cuff placed on Right Arm 10:56 AM Recorded ECG: HR=74 Condition=Condition 1 10:57 AM HR=77 bpm, XHLI=465/76 mmhg, SpO2=99.0 %, Resp=15 B/min, EtCO2=24 mmHg 11:00 AM Time: 10:59 Solu-medrol 125 mg Intravenous Given by Selene Ambriz RN [facility] 11:00 AM Time: 11:00 Benadryl 25 mg Intravenous Given by Selene Ambriz RN 11:01 AM Time: 11:01 Versed 1 mg Intravenous Given by Selene Ambriz RN [facility] 11:02 AM Time: 11:01 Fentanyl 25 mcg Intravenous Given by Selene Ambriz RN [facility] 11:02 AM HR=74 bpm, LWSH=268/79 mmhg, SpO2=99.0 %, Resp=16 B/min, EtCO2=30 mmHg 11:07 AM HR=81 bpm, MJKA=275/69 mmhg, SpO2=96.0 %, Resp=10 B/min 11:07 AM Time: 10:52 Patient comfortable and pain free: Yes [email or web address] 11:07 AM Time: 10:52LOC: 4 = Oriented but drowsy [email or web address] 11:08 AM Pressure channel 1 zeroed. 11:12 AM HR=81 bpm, UGLF=840/66 mmhg, SpO2=95.0 %, Resp=10 B/min 11:12 AM Time out performed according to hospital policy [email or web address] 11:14 AM Time: 11:13 18 ml Lidocaine 2% to right groin Subcutaneous [email or web address] AM Access obtained by percutaneous puncture. 5Fr 10cm Terumo Billings sheath placed in right Femoral artery. [id number] [email or web address] 11:14 AM 0.035 145cm Navilyst 3mmJ wire [id number] [email or web address] 11:15 AM 5Fr FL 4 catheter inserted over the wire [email or web address] 11[facility]16 AM Recorded Pressure: Ao, HR=80, Condition=Condition 1 (Aorta) Ao 110/61/81 11:16 AM LCA angiography performed in multiple views. [email or web address] 11:17 AM HR=77 bpm, NMEV=616/60 mmhg, SpO2=95.0 %, Resp=12 B/min, EtCO2=26 mmHg 11:18 AM Physician reviewing films [email or web address] 11:19 AM Catheter removed [email or web address] 11:19 AM 5Fr FR 4 catheter inserted over the wire [email or web address] 11:20 AM RCA angiography performed in multiple views. [email or web address] 11:20 AM Coronary Dominance: right [email or web address] 11:21 AM Recorded Pressure: Ao, HR=76, Condition=Condition 1 (Aorta) Ao 94/57/75 11:21 AM SVG to the 1st OM angio performed in multiple views. [email or web address] 11:22 AM Catheter removed [email or web address] 11:22 AM HR=83 bpm, NBAC=754/62 mmhg, SpO2=95.0 %, Resp=10 B/min 11:22 AM 5Fr IM catheter inserted over the wire [id number] [email or web address] 11:22 AM Time: 11:07LOC: 4 = Oriented but drowsy [email or web address] 11:22 AM Time: 11:07 Patient comfortable and pain free: Yes [email or web address] 11:23 AM Left CHERY to the LAD angio performed in multiple views. [email or web address] 11:24 AM Catheter removed [facility] 11:25 AM 5Fr Pigtail catheter inserted over the wire [facility] 11:25 AM Catheter selectively placed in left ventricle [email or web address] 11:25 AM Pressure channel 1 zeroed. 11:26 AM Recorded Pressure: LV, HR=83, Condition=Condition 1 (Left Ventricle) LV 116/-6/6 11:26 AM Bolus angiogram of left Ventricle complete: 8 ml/sec for a total of 24 mls [email or web address] 11:26 AM Recorded Pressure: LV, Ao, HR=82, Condition=Condition 1 (Left Ventricle) LV 111/34/45, (Aorta) Ao 91/35/60 11:27 AM Catheter removed [email or web address] 11:27 AM HR=81 bpm, ALTV=447/63 mmhg, SpO2=95.0 %, Resp=11 B/min, EtCO2=31 mmHg 11:29 AM Lesion found in Proximal LAD. Pre Stenosis: 99 Pre TERRI Flow: [place] [id number] 11:29 AM Proximal Left Anterior Descending Coronary Artery with 99% stenosis. If graft is supplying this territory, 0 % stenosis. [facility] 11:30 AM Sheath exchanged for a 6 Fr 11 cm Cordis Marjorie sheath [id number] [email or web address] 11:30 AM Inflation device was opened. [email or web address] 11:31 AM 6Fr XB LAD 3.5 [place] Bright-Tip guide catheter was used to cannulate the PCI vessel successfully. reused? No [email or web address] 11:32 AM HR=79 bpm, KUBH=880/63 mmhg, SpO2=96.0 %, Resp=11 B/min, EtCO2=17 mmHg 11:33 AM Recorded Pressure: Ao, HR=80, Condition=Condition 1 (Aorta) Ao 107/50/73 11:33 AM Time: 11:33 Angiomax 0.75mg/kg bolus: 16 ml Intravenous Given by Selene Ambriz RN [facility] [email or web address] 11:33 AM .014 Prowater 180cm guide wire across target lesion- successful. reused? No in Diag [email or web address] 11:34 AM Time: 11:34 Angiomax 1.75mg/kg/hr: 35 ml/hr Intravenous Given by Selene Ambriz RN [facility] [email or web address] 11:35 AM .014 PT Graphix 182cm guide wire across target lesion- successful. reused? No in LAD [email or web address] 11:37 AM 2.5 mm x 12 mm Emerge Monorail balloon across target lesion- successful. reused? No [email or web address] 11:37 AM HR=80 bpm, WUNC=297/66 mmhg, SpO2=96.0 %, Resp=10 B/min 11:37 AM Time: 11:22 Patient comfortable and pain free: Yes [email or web address] 11:37 AM Time: 11:22LOC: 4 = Oriented but drowsy [email or web address] 11:38 AM Balloon inflated @ 14 miranda for 30 seconds [email or web address] 11:38 AM Balloon inflated @ 14 miranda for 10 seconds [email or web address] 11:39 AM Balloon catheter removed intact. [email or web address] 11:40 AM [id number] balloon on pt graphix [email or web address] 11:42 AM Balloon inflated @ 14 miranda for 20 seconds [email or web address] 11:42 AM HR=80 bpm, HMDC=826/77 mmhg, SpO2=97.0 %, Resp=11 B/min, EtCO2=27 mmHg 11:42 AM Balloon catheter removed intact. [email or web address] 11:43 AM Time: 11:42 Nitroglycerin 200 mcg Intracoronary [facility] 11:45 AM 2.5mm x mm Synergy drug-eluting stent across target lesion- successful Lot #[id number] [email or web address] 11:46 AM Guide wire removed intact. prowater [email or web address] 11:47 AM Stent deployed @ 14 miranda for 30 seconds [email or web address] 11:47 AM HR=84 bpm, IFEA=079/58 mmhg, SpO2=95.0 %, Resp=10 B/min, EtCO2=30 mmHg 11:47 AM Stent balloon reinflated @ 18 miranda for 15 seconds [email or web address] 11:48 AM Stent delivery system removed intact. [email or web address] 11:48 AM Time: 11:48 Nitroglycerin 200 mcg Intracoronary Given [facility] 11[facility] AM Guide wire removed intact. [email or web address] 11:49 AM Guide catheter removed intact. [email or web address] 11:50 AM Bolus angiogram of right Femoral complete: 4 ml/sec for a total of 7 mls [email or web address] 11:51 AM Procedure completed at 11:51 02/10/2018 [email or web address] 11:51 AM Sign out completed: Radiation Dose 852.02 mGy, 9774.76 cGy/cm2 Fluoro Time: 9.3 Isovue 370 - 200ml contrast 189 ml given by Mary Mcmillan MD, [facility]. Complications: NoneCardiac Rehab Consult needed: YesConfirmed administered medications: Yes [email or web address] 11:51 AM Isovue 370 - 200ml,2 Bottle(s) used. [email or web address] 11:51 AM Sheath left in place to be pulled on floor/holding areaV+Pad [email or web address] 11:52 AM Estimated Blood Loss: less than 20cc [email or web address] 11:52 AM Post ECG NSR [email or web address] 11:52 AM Post Blood Pressure 113/58 [email or web address] 11:52 AM Information taught Cardiac Cath and PCI [email or web address] 11:52 AM HR=84 bpm, SWQR=435/63 mmhg, SpO2=95.0 %, Resp=12 B/min, EtCO2=29 mmHg 11:52 AM Education needs Procedure, Plan of Care, and Disease Process [email or web address] 11:52 AM Learning barriers :Sedated and Cognitive [email or web address] 11:52 AM Time: 11:37LOC: 5 = Fully awake and oriented or at pre-proc level [email or web address] 11:52 AM Time: 11:37 Patient comfortable and pain free: Yes [email or web address] 11:52 AM Education Methods Verbal [email or web address] 11:53 AM Education evaluation Needs further instruction [email or web address] 11:53 AM Site status No bleeding/hematoma - Rt Groin as reported by Sites, Bhakti RT (R) at 11:53 [email or web address] 11:53 AM Opsite applied [email or web address] 11:53 AM Delay to floor Bed availability [email or web address] 11:53 AM Complications: None [email or web address] 11:57 AM Family placed in consult room. [email or web address] 11:57 AM Lesion found in Distal LMCA. Pre Stenosis: 50 Pre TERRI Flow: [email or web address] 11:58 AM Left Main Coronary Artery with 50% stenosis [email or web address] 11:58 AM Lesion found in Mid LAD. Pre Stenosis: 100 Pre TERRI Flow: [email or web address] 11:58 AM Mid/Distal Left Anterior Descending Coronary Artery and diagonal branches with 100% stenosis. If graft is supplying this area, 0 % stenosis [email or web address] 11:58 AM Lesion found in Proximal Circumflex. Pre Stenosis: 99 Pre TERRI Flow: [email or web address] 11:58 AM Circumflex, Obtuse Marginal, Left Posterior Descending, and Left Posterolateral Coronary Arteries with 99 % stenosis. If graft is supplying this area, 0 % stenosis [email or web address] 11:58 AM Lesion found in 2nd Marginal. Pre Stenosis: 100 Pre TERRI Flow: [email or web address] 11:59 AM Circumflex, Obtuse Marginal, Left Posterior Descending, and Left Posterolateral Coronary Arteries with 100 % stenosis. If graft is supplying this area, 0 % stenosis [email or web address] 11:59 AM Time: 11:59 Brilinta 180 mg Orally Given by Selene Ambriz RN [email or web address] 12:00 PM Lesion found in Proximal RCA. Pre Stenosis: 100 Pre TERRI Flow: [email or web address] 12:00 PM Right Coronary, Right Posterior Descending Arteries with Right Posterolateral and Acute Marginal branches with 100 % stenosis. If graft is supplying this area, 0 % stenosis [email or web address] 12:07 PM Report given to abdon BARBOZA Pt taken to Holding room Room #14. 12:06 [email or web address] 12:07 PM Patient out of room: 12:07 [email or web address] 12:08 PM 12:08 Post Pulses Bilateral DP & PT 2+ [email or web address] 12:33 PM family at bedside [email or web address] 02:28 PM Arterial sheath pulled using manual compression and V+ Pad for 15 minutes by Abdon Rodríguez RN [email or web address] 02:48 PM Arterial sheath pulled, 4x4 closure device used and was Successful S/N. [email or web address] 03:03 PM Report given to 2NE nurse RN Pt taken to [facility] Room #25. 15:03 mprater Complications Complication None None Hemodynamics Pressures Site Systolic/A Wave Diastolic/V Wave Mean AO 110 61 81 AO 94 57 75 LV 116 -6 6 LV 111 34 45 AO 91 35 60 AO 107 50 73 Post Procedure Information Blood Pressure: 113/58 mmHg Rhythm: NSR Post procedural instructions were given Closure Device Time Device Success/Fail 02/10/2018 3:50:00 PM Manual Compression Successful Site Checks Time Location Status Staff Sheath In? Note 11:53 AM Rt Groin No bleeding/hematoma Sites, Bhakti RT (R) 12:17 PM Rt Groin No bleeding/ No Hematoma Abdon Rodríguez RN Yes 12:33 PM Rt Groin No bleeding/ No Hematoma Caterina Reaves RN Yes 12:48 PM Rt Groin No bleeding/ No Hematoma Caterina Reaves RN Yes 01:09 PM Rt Groin No bleeding/ No Hematoma Abdon Rodríguez RN Yes 6 [place] sheath right groin 01:26 PM Rt Groin No bleeding/ No Hematoma Abdon Rodríguez RN Yes 01:45 PM Rt Groin No bleeding/ No Hematoma Caterina Reaves RN Yes 02:00 PM Rt Groin No bleeding/ No Hematoma Caterina Reaves RN Yes 02:15 PM Rt Groin No bleeding/ No Hematoma Caterina Reaves RN Yes 02:30 PM Rt Groin No bleeding/ No Hematoma Abdon Rodríguez RN sheath pulled at 1428 02:30 PM Rt Groin No bleeding/ No Hematoma Abdon Rodríguez RN 02:50 PM Rt Groin No bleeding/ No Hematoma Abdon Rodríguez RN 03:00 PM Rt Groin No bleeding/ No Hematoma Abdon Rodríguez RN Pulses Time Site Pre-Procedure Post-Procedure Note 02/10/2018 10:34:00 AM Bilateral DP & PT 2+ 02/10/2018 10:34:00 AM Bilateral radial 2+ 12:08:00 PM Bilateral DP & PT 2+ 02/10/2018 12:16:00 PM Bilateral DP 2+ 02/10/2018 12:48:00 PM Bilateral DP 2+ 02/10/2018 1:10:00 PM Bilateral DP 1+ 02/10/2018 1:25:00 PM Bilateral DP 1+ Updated by Caterina Reaves RN on 02/10/2018 3:08:35 PM electronically signed on 02/10/2018 3:12:03 PM with status of Final
--- NOTE | 2018-02-10 16:19 | Internal Med Progress Note ---
Hospitalist Progress Note - Encounter Date of Encounter: 02/10/18 Time of Encounter: 09:00 - Subjective Interval History: Patient denies chest pain or shortness of breath. Plan for [facility] today. - Exam Vitals: Temp Pulse Resp BP Pulse Ox 97.8 F 81 18 159/74 95 02/10/18 07:53 02/10/18 16:05 02/10/18 16:05 02/10/18 16:05 02/10/18 07:53 Exam: General: Well-developed male lying in bed in no acute distress Chest: Normal thoracic expansion. Normal breath sounds. Clear to auscultation. Heart: Normal S1 & S2; rhythmic. No rubs or murmurs. Extremities: No clubbing, cyanosis or edema. No calf tenderness. Normal distal pulses. Neurological: Awake, alert and oriented to person, place and time. No focal deficits. Psych: Affect appropriate. - Assessment and Plan (1) NSTEMI (non-ST elevated myocardial infarction) Current Visit: Yes Status: Acute Assessment and Plan: patient presented with symptoms of possible unstable angina, noted to have mild and adynamic Troponin elevation, around 0.15; Plan for [facility] today. (2) HLD (hyperlipidemia) Current Visit: Yes Status: Chronic Assessment and Plan: resume statin. (3) GERD (gastroesophageal reflux disease) Current Visit: Yes Status: Chronic Assessment and Plan: continue PPI; (4) CAD (coronary artery disease) Current Visit: Yes Status: Chronic Assessment and Plan: Management as above (5) Chronic respiratory failure Current Visit: Yes Status: Chronic Assessment and Plan: on home O2 due to underlying COPD; (6) COPD (chronic obstructive pulmonary disease) Current Visit: Yes Status: Chronic Assessment and Plan: not in acute exacerbation; continue PRN breathing treatments, ICS, supplemental O2; (7) Essential hypertension Current Visit: Yes Status: Chronic Assessment and Plan: Cont home meds (8) Anxiety and depression Current Visit: Yes Status: Chronic - Time Spent with Patient Total time spent is greater than 50% in coordination of care (as documented) at patient's floor/unit and/or counseling patient: 25 - 35 minutes Plan of Care Discussed with: patient Internal Medicine: Result - Labs CBC & Chem 7: 02/08/18 04:24 02/10/18 04:04 Labs: BMP 02/10/18 04:04 Sodium 137 Potassium 4.4 Chloride 105 Carbon Dioxide 22 L BUN 16 Creatinine 1.20 Glucose 233 H Calcium 9.4 - ABG Interpretation ABG results: PT/INR, D-dimer PT 11.6 Seconds (9.4-12.1) 02/07/18 00:05 Consult Discharge Plan - Plan Referrals: Chris Chinchilla MD [Primary Care Provider] - (2) HLD (hyperlipidemia) Qualifiers: Hyperlipidemia type: unspecified Qualified Code(s): E78.5 - Hyperlipidemia, unspecified (3) GERD (gastroesophageal reflux disease) Qualifiers: Esophagitis presence: esophagitis presence not specified Qualified Code(s): K21.9 - Gastro-esophageal reflux disease without esophagitis (4) CAD (coronary artery disease) Qualifiers: Coronary Disease-Associated Artery/Lesion type: [place] artery [place] vs. transplanted heart: [place] heart Associated angina: without angina Qualified Code(s): I25.10 - Atherosclerotic heart disease of [place] coronary artery without angina pectoris (5) Chronic respiratory failure Qualifiers: Respiratory failure complication: hypoxia Qualified Code(s): J96.11 - Chronic respiratory failure with hypoxia (6) COPD (chronic obstructive pulmonary disease) Qualifiers: COPD type: unspecified COPD Qualified Code(s): J44.9 - Chronic obstructive pulmonary disease, unspecified
[2018-02-11 04:39] LABS: Basophils % 0.1 %; Hematocrit 41.2 % (37.5-50.1); Hemoglobin 13.8 g/dL (12.9-16.9); Immature Granulocytes % 0.6 % (0-4); Lymphocytes % 4.8 %; Mean Corpuscular HGB Conc 33.5 g/dL (31.6-35.5); Mean Corpuscular Hemoglobin 30.7 pg (28.0-33.3); Mean Corpuscular Volume 91.8 fL (83.0-100.0); Mean Platelet Volume 9.7 fL (9.4-12.4); Monocytes # 1.3 K/mcL (0.0-1.3); Neutrophils # 18.4 K/mcL (1.6-8.9); Platelet Count 173 K/mcL (140-400); Red Blood Count 4.49 M/mcL (4.19-5.50); Red Cell Distribution Width 13.2 % (11.5-14.5); Segmented Neutrophils % 88.5 %
[2018-02-11 05:00] LABS: BUN/Creatinine Ratio 21 (6-26); Blood Urea Nitrogen 25 mg/dL (8-23); Calcium 9.3 mg/dL (8.6-10.3); Carbon Dioxide 22 mEq/L (23-29); Chloride 106 mEq/L (98-107); Glucose 290 mg/dL (70-105); Osmolality,Calculated 297 (280-300); Potassium 4.4 mEq/L (3.5-5.1); Sodium 136 mEq/L (136-145); eGFR For Non-African Americans 60 (> 60)
[2018-02-11] MEDS ORDERED: *HR* Heparin 5,000 UNIT/ML VIAL SQ SCH (06:00)
[2018-02-11 07:03] VITALS: BP 134/68
[2018-02-11] MEDS ORDERED: Aspirin 81 MG TAB.CHEW PO SCH (09:00)
[2018-02-11] MEDS: *HR* Digoxin 0.125 MG TABLET PO SCH (09:33)
--- NOTE | 2018-02-11 11:14 | Cardiology Progress Note ---
Date of Encounter: 02/11/18 Time of Encounter: 08:45 Assessment and Plan (1) NSTEMI (non-ST elevated myocardial infarction) Current Visit: Yes Status: Acute Troponin elevation at 0.14, 0.14, 0.15 in patient with known CAD. EKG shows Sr with diffuse ST changes. C/o chest pain prior to admit. Now pain free. TTE LVEF 45-50%. Mild LV segmental wall motion abnormality. Mild left ventricular diastolic dysfunction. RV size is not well visualized. Normal function by Doppler. Mild tricuspid regurgitation. Mild pulmonic regurgitation. No pulmonary hypertension. Compared to TTE in 2014 EF mildly reduced. Previously 55%. [facility] completed 02/10/18- S/p PCI to pLAD. 1/2 patent bypass grafts. Severe disease remaining. There is a 50% stenosis in the Distal LMCA. The RHODES to the mLMCA was patent. 100% stenosis in the mLAD that fills from patent RHODES graft. 99% stenosis in the Proximal/Ostial Circumflex and 100% stenosis in the OM1, fills via Left to Left collaterals.The SVG to OM was occluded. 100% stenosis in the pRCA (DISPLAY DESIGNER OUTSIDE). Mid-Distal RCA fill from Right to Right bridging collaterals. I discussed with Dr. Mary Mcmillan, can consider fixing the RCA DISPLAY DESIGNER OUTSIDE in the future or continue medical management if no symptoms. He is pain free ambulating in his room. There was no complication from the procedure. No complications from right femoral access site. Importance of DAPT with asa and plavix uninterrupted for minimum of one year discussed and she voiced understanding. Continue statin and BB. Activity restrictions reviewed. Cardiac rehab ordered. Cardiology will sign off. Out-pt f/u will be coordinated by [facility]. (2) CAD (coronary artery disease) Current Visit: Yes Status: Chronic H/o CABG and PCI. Continue asa, statin, and bb. Qualifiers: Coronary Disease-Associated Artery/Lesion type: [place] artery [place] vs. transplanted heart: [place] heart Associated angina: without angina Qualified Code(s): I25.10 - Atherosclerotic heart disease of [place] coronary artery without angina pectoris Discussion w patient/family: The assessment and plan as outlined above was discussed with the patient and/or family members who expressed understanding and agreement. All questions were answered. Thank you for involving us in the care of your patient. Please call with any questions. Subjective Principal diagnosis: Chest pain Interval history: Mr. Elliott was ambulating in his room. Denies recurrent chest pain. Objective General: Conversant, No Apparent Distress HEENT: Atraumatic, Normocephaly, Mucus Membranes Moist Neck: No JVD, Normal carotid pulses Cardiac: Reg Rate and Rhythm, Normal S1 and S2, No Murmur Lungs: Normal Breath Sounds, No Wheeze, Rales, Rhonchi Neuro: Alert and responsive, No focal deficits noted Abdomen: Soft, Non-Tender Skin: No rashes noted on visualized skin Musculoskeletal: No Chest Wall Tenderness Extremities: No Clubbing, No Cyanosis, No Edema, Normal Pulses, Other (Right groin soft with no hematoma. Dressing removed.) Results 02/11/18 04:14 02/11/18 04:14 Lab Results 02/11/18 02/11/18 04:14 04:14 WBC 20.8 H D Hgb 13.8 Hct 41.2 Plt Count 173 Sodium 136 Potassium 4.4 Chloride 106 Carbon Dioxide 22 L BUN 25 H Creatinine 1.18 Glucose 290 H Calcium 9.3 - Imaging and Cardiology Cardiac cath: report reviewed - EKG Interpretation EKG results cardiology: personally reviewed Consult Discharge Plan - Plan Referrals: Chris Chinchilla MD [Primary Care Provider] - 02/20/18 3:45 pm
--- NOTE | 2018-02-11 12:01 | Discharge Summary ---
- NOTES TO OUTPATIENT PROVIDER Notes to Outpatient Provider: Had stent, Cont DAPT for at least 1 year Orders not resulted at time of discharge: Pending orders 02/10/18 11:58 ECG 12 lead ECG [ECG] Stat Date of Encounter: 02/11/18 Time of Encounter: 10:00 - Discharge Diagnosis (1) NSTEMI (non-ST elevated myocardial infarction) Priority: Primary Status: Acute (2) HLD (hyperlipidemia) Priority: Secondary Status: Chronic Qualifiers: Hyperlipidemia type: unspecified Qualified Code(s): E78.5 - Hyperlipidemia , unspecified (3) GERD (gastroesophageal reflux disease) Priority: Secondary Status: Chronic Qualifiers: Esophagitis presence: esophagitis presence not specified Qualified Code(s) : K21.9 - Gastro-esophageal reflux disease without esophagitis (4) CAD (coronary artery disease) Priority: Secondary Status: Chronic Qualifiers: Coronary Disease-Associated Artery/Lesion type: [place] artery [place] vs. transplanted heart: [place] heart Associated angina: without angina Qualified Code(s): I25.10 - Atherosclerotic heart disease of [place] coronary artery without angina pectoris (5) Chronic respiratory failure Priority: Secondary Status: Chronic Qualifiers: Respiratory failure complication: hypoxia Qualified Code(s): J96.11 - Chronic respiratory failure with hypoxia (6) COPD (chronic obstructive pulmonary disease) Priority: Secondary Status: Chronic Qualifiers: COPD type: unspecified COPD Qualified Code(s): J44.9 - Chronic obstructive pulmonary disease, unspecified (7) Essential hypertension Priority: Secondary Status: Chronic (8) Anxiety and depression Priority: Secondary Status: Chronic Hospital course: Mr. Elliott is a 77 year old male presented to ER for chest pain. Patient also has elevated troponin. Patient was treated with heparin drip. Cardiology consult was called. LHC has been done under premedication as patient is allergic to contrast. Stent placed. Patient has no further chest pain. Cardiology signed off. Will discharge patient home today. Patient has leukocytosis which is most likely due to large dose of prednisone use during LHC premedication. No signs of infection. I saw and examined patient today. Patient is awake alert, oriented 3, denies chest pain or shortness of breath. In no acute distress. Vitals stable. We will discharge patient home, continue DAPT, and the follow-up with cardiology as outpatient. Discharge discussed with: patient - Time Spent with Patient Total time spent providing and/or coordinating discharge services: 25 min Less than 30 minutes - Discharge Medications Prescriptions: Aspirin 81 mg PO DAILY 30 Days #30 tab.chew Carvedilol [Coreg] 6.25 mg PO BIDWM 30 Days #60 tablet Clopidogrel [Plavix] 75 mg PO DAILY 30 Days #30 tablet Home Medications: Albuterol Neb [Proventil Neb] 2.5 mg IH QID PRN 02/07/18 [History] Albuterol Sulfate [Ventolin Hfa] 2 puff IH Q4H PRN 02/07/18 [History] Atorvastatin [Lipitor] 10 mg PO HS 02/07/18 [History] Carvedilol [Coreg] 6.25 mg PO DAILY 02/07/18 [History] Cholecalciferol (D-3) [Vitamin D] 1,000 unit PO DAILY 02/07/18 [History] Digoxin [Lanoxin] 0.125 mg PO DAILY 02/07/18 [History] Esomeprazole Magnesium [Nexium] 20 mg PO DAILY 02/07/18 [History] Fluticasone/Salmeterol [Advair 250-50 Diskus] 1 puff IH BID 02/07/18 [History] Methocarbamol [Robaxin] 500 mg PO QID 02/07/18 [History] PredniSONE [Negrita] 5 mg PO DAILY 02/07/18 [History] Spironolactone [Aldactone] 25 mg PO DAILY 02/07/18 [History] Tamsulosin HCl [Flomax] 0.4 mg PO DAILY 02/07/18 [History] clonazePAM [Clonazepam] 0.5 mg PO BID PRN 02/07/18 [History] Aspirin 81 mg PO DAILY 30 Days #30 tab.chew 02/11/18 [Rx] Carvedilol [Coreg] 6.25 mg PO BIDWM 30 Days #60 tablet 02/11/18 [Rx] Clopidogrel [Plavix] 75 mg PO DAILY 30 Days #30 tablet 02/11/18 [Rx] Allergies/Adverse Reactions: 3 Allergy/AdvReac Type Severity Reaction Status Date / Time Iodinated Contrast- Oral and Allergy Swelling Verified 02/07/18 02:33 IV Dye of [Iodinated Contrast Media - Lip/Tongue/Throat IV Dye] shellfish derived Allergy Swelling Verified 02/07/18 02:33 of Lip/Tongue/Throat Date of admission: 02/07/18 11:51 Primary care physician: Chris Chinchilla MD Consults: 02/09/18 08:01 Consult to Cardiac Rehabilitation-Phase1 [CONS] Routine Comment: Reason for Consult: NSTEMI Call Completed: Yes Discharging clinician: Ruthie Thompson Anticipated date of discharge: 02/11/18 - Constitutional Vitals: Temp Pulse Resp BP Pulse Ox 97.5 F L 69 20 134/68 96 02/11/18 06:57 02/11/18 06:57 02/11/18 06:57 02/11/18 06:57 02/11/18 06:57 General appearance: Present: cooperative, pleasant, answers questions appropriately Exam: General: Well-developed male lying in bed in no acute distress - Head Head exam: Present: atraumatic, normocephalic - Eye Eye exam: Present: PERRL, conjuntiva pink, sclera anicteric Pupils: Present: PERRL - Neck Neck exam general surgery: Present: supple, trachea midline. Absent: lymphadenopathy - Respiratory Respiratory exam: Present: CTAB. Absent: accessory muscle use, rales, rhonchi, wheezes - Cardiovascular Cardiovascular exam: Present: RRR, +S1, +S2. Absent: diastolic murmur, gallop, rubs, systolic murmur - GI/Abdominal GI/Abdominal exam: Present: normal bowel sounds, soft, no peritoneal signs. Absent: distended, tenderness - Extremities Exam Extremities exam: Present: warm, radial pulses palpable and symmetrical. Absent : calf tenderness, cyanotic, pedal edema - Neurological Exam Neurological exam: Present: CN II-XII intact, oriented X3, no focal deficits. Absent: pronater drift, facial droop, speech deficit - Skin Skin exam: Present: dry, intact - Patient Status Disposition: Home, Self-Care Condition: Good Functional capacity at discharge: independent ambulation Overall status at discharge: patient is back to baseline - Discharge Instructions Follow Up With: Chris Chinchilla MD [Primary Care Provider] - 02/20/18 3:45 pm - Diet and Activity Activity: increase activity as tolerated Diet: low fat, low cholesterol, low salt diet
--- NOTE | 2018-02-11 16:22 | Electrocardiograph Report ---
[place] [id number] Test Date: 2018-02-06 Pat Name: Peng Elliott Department: [id number] Room: 2NE25 Gender: M [employer]: : 1940 Requested By: Octavio Perez Order Number: [id number] Reading MD: Billy Cee Measurements Intervals [place] Rate: 63 P: 69 MT: 142 QRS: -17 QRSD: 103 T: 84 QT: 447 QTc: 458 Interpretive Statements Sinus rhythm Abnormal R-wave progression, early transition Inferior infarct, old ST depressions anterolateral leads Electronically Signed On 02-11-2018 16:20:45 EDT by Billy Cee
--- NOTE | 2018-02-11 17:42 | Electrocardiograph Report ---
[address] [place] [address] Test Date: 2018-02-11 Pat Name: [facility] Department: 111 Room: 2NE25 Gender: M [employer]: : 1940 Requested By: Mary Mcmillan Order Number: [id number] Reading MD: José Fisher Measurements Intervals [place] Rate: 77 P: 68 [place]: 155 QRS: -14 QRSD: 104 T: 100 QT: 357 QTc: 389 Interpretive Statements SINUS RHYTHM INFERIOR MYOCARDIAL INFARCTION, PROBABLY OLD WITH POSTERIOR EXTENSION Electronically Signed On 02-11-2018 17:40:54 EDT by José Fisher
== END 2018-02-11 13:39 | disposition home or self-care (01) | DRG 247 ==
LOC: 2NENU 23:29 → EMEROOARM 23:29 → SUATTDRO 02-07 02:27 → 2NENU 02-07 03:00
PROVIDERS: ADMIT Family Medicine; ATTEND Internal Medicine

== ENCOUNTER 2020-03-03 15:39 | Inpatient (IN) ==
[2020-03-03 16:20] LABS: Basophils % 0.4 %; Eosinophils # 0.1 K/mcL (0.0-0.6); Eosinophils % 1.7 %; Hematocrit 40.5 % (37.5-50.1); Hemoglobin 12.9 g/dL (12.9-16.9); Immature Granulocytes % 0.3 % (0-4); Lymphocytes # 1.7 K/mcL (0.6-4.6); Lymphocytes % 23.5 %; Mean Corpuscular HGB Conc 31.9 g/dL (31.6-35.5); Mean Corpuscular Hemoglobin 29.6 pg (28.0-33.3); Mean Corpuscular Volume 92.9 fL (83.0-100.0); Mean Platelet Volume 9.5 fL (9.4-12.4); Monocytes % 13.5 %; Neutrophils # 4.4 K/mcL (1.6-8.9); Platelet Count 166 K/mcL (140-400); Red Blood Count 4.36 M/mcL (4.19-5.50); Red Cell Distribution Width 12.7 % (11.5-14.5); Segmented Neutrophils % 60.6 %; White Blood Count 7.2 K/mcL (4.3-11.1)
[2020-03-03 16:31] LABS: BUN/Creatinine Ratio 21 (6-26); Blood Urea Nitrogen 23 mg/dL (8-23); Calcium 9.5 mg/dL (8.6-10.3); Carbon Dioxide 27 mEq/L (23-29); Chloride 104 mEq/L (98-107); Glucose 157 mg/dL (70-105); Osmolality,Calculated 291 (280-300); Potassium 4.3 mEq/L (3.5-5.1); Sodium 137 mEq/L (136-145); eGFR For African Americans > 60 (> 60); eGFR For Non-African Americans > 60 (> 60)
[2020-03-03 16:34] LABS: Troponin I 0.09 ng/mL (< 0.04)
[2020-03-03] MEDS ORDERED: Aspirin 325 MG TABLET PO ONE (18:28)
[2020-03-03] MEDS ORDERED: Acetaminophen 325 MG TABLET PO PRN (20:38)
[2020-03-03] MEDS ORDERED: Naloxone 0.4 MG/ML INJ IVP PRN (20:38)
[2020-03-03 22:14] LABS: Chol/HDL Ratio 4.6 (0-4.9); Magnesium 1.8 mg/dL (1.6-2.6); Phosphorous 3.5 mg/dL (2.7-4.5)
[2020-03-03] MEDS ORDERED: Nitroglycerin 0.4 MG TAB.SUBL SL PRN (23:31)
[2020-03-03] MEDS ORDERED: Perflutren Lipid Microsphere 1.3 ML in 0.9 % Sodium Chloride 8.7 ML IVP PRN (23:54)
[2020-03-04 02:36] LABS: Basophils % 0.4 %; Eosinophils # 0.1 K/mcL (0.0-0.6); Eosinophils % 1.9 %; Hematocrit 38.1 % (37.5-50.1); Hemoglobin 12.1 g/dL (12.9-16.9); Immature Granulocytes % 0.3 % (0-4); Lymphocytes # 1.7 K/mcL (0.6-4.6); Lymphocytes % 25.9 %; Mean Corpuscular HGB Conc 31.8 g/dL (31.6-35.5); Mean Corpuscular Hemoglobin 29.3 pg (28.0-33.3); Mean Corpuscular Volume 92.3 fL (83.0-100.0); Mean Platelet Volume 9.1 fL (9.4-12.4); Monocytes # 0.8 K/mcL (0.0-1.3); Monocytes % 12.3 %; Platelet Count 150 K/mcL (140-400); Red Blood Count 4.13 M/mcL (4.19-5.50); Red Cell Distribution Width 12.8 % (11.5-14.5); Segmented Neutrophils % 59.2 %; White Blood Count 6.7 K/mcL (4.3-11.1)
[2020-03-04 02:57] LABS: BUN/Creatinine Ratio 18 (6-26); Blood Urea Nitrogen 22 mg/dL (8-23); Calcium 8.8 mg/dL (8.6-10.3); Carbon Dioxide 29 mEq/L (23-29); Chloride 103 mEq/L (98-107); Glucose 187 mg/dL (70-105); Osmolality,Calculated 292 (280-300); Potassium 4.1 mEq/L (3.5-5.1); Sodium 137 mEq/L (136-145); eGFR For African Americans > 60 (> 60); eGFR For Non-African Americans 58 (> 60)
[2020-03-04] MEDS: Budesonide/Formoterol 160/4.5 1 PUFF INH IH SCH ×3 (03:46→20:17)
[2020-03-04] MEDS: carvediloL 6.25 MG TABLET PO SCH ×2 (08:56→17:14)
[2020-03-04] MEDS: Cholecalciferol (D-3) 1,000 UNIT (25MCG) TABLET PO SCH (08:56)
[2020-03-04] MEDS: Aspirin 81 MG TAB.CHEW PO SCH (08:56)
[2020-03-04] MEDS: *HR* Digoxin 0.125 MG TABLET PO SCH (08:56)
[2020-03-04] MEDS ORDERED: *HR* Heparin 5,000 UNIT/ML VIAL IVP PRN ×2 (16:25)
[2020-03-04] MEDS: Heparin 25,000UNIT/250ML 1/2NS 25,000 UNIT/250 ML IV.SOLN IVC SCH (17:15)
[2020-03-04 17:28] LABS: Hematocrit 38.5 % (37.5-50.1); Hemoglobin 12.3 g/dL (12.9-16.9); Mean Corpuscular HGB Conc 31.9 g/dL (31.6-35.5); Mean Corpuscular Hemoglobin 29.9 pg (28.0-33.3); Mean Corpuscular Volume 93.7 fL (83.0-100.0); Mean Platelet Volume 9.4 fL (9.4-12.4); Platelet Count 153 K/mcL (140-400); Red Blood Count 4.11 M/mcL (4.19-5.50); Red Cell Distribution Width 12.6 % (11.5-14.5); White Blood Count 6.7 K/mcL (4.3-11.1)
[2020-03-04 17:32] LABS: INR 1.1; Prothrombin Time 12.2 Seconds (9.4-12.1)
[2020-03-04 17:33] LABS: Heparin anti-factor XA UFH < 0.04 IU/mL (0.30-0.70)
[2020-03-05 05:46] LABS: Hemoglobin 12.3 g/dL (12.9-16.9); Mean Corpuscular HGB Conc 32.4 g/dL (31.6-35.5); Mean Corpuscular Hemoglobin 30.1 pg (28.0-33.3); Mean Corpuscular Volume 93.1 fL (83.0-100.0); Mean Platelet Volume 9.7 fL (9.4-12.4); Platelet Count 151 K/mcL (140-400); Red Blood Count 4.08 M/mcL (4.19-5.50); Red Cell Distribution Width 12.7 % (11.5-14.5); White Blood Count 6.9 K/mcL (4.3-11.1)
[2020-03-05 06:04] LABS: BUN/Creatinine Ratio 19 (6-26); Blood Urea Nitrogen 21 mg/dL (8-23); Calcium 8.7 mg/dL (8.6-10.3); Carbon Dioxide 25 mEq/L (23-29); Chloride 104 mEq/L (98-107); Glucose 176 mg/dL (70-105); Osmolality,Calculated 289 (280-300); Potassium 4.2 mEq/L (3.5-5.1); Sodium 136 mEq/L (136-145); eGFR For African Americans > 60 (> 60); eGFR For Non-African Americans > 60 (> 60)
[2020-03-05] MEDS: Budesonide/Formoterol 160/4.5 1 PUFF INH IH SCH ×2 (07:23→19:54)
[2020-03-05] MEDS ORDERED: clonazePAM 0.5 MG TABLET PO PRN (07:52)
[2020-03-05] MEDS: Cholecalciferol (D-3) 1,000 UNIT (25MCG) TABLET PO SCH (08:02)
[2020-03-05] MEDS: Aspirin 81 MG TAB.CHEW PO SCH (08:02)
[2020-03-05] MEDS: carvediloL 6.25 MG TABLET PO SCH ×2 (08:02→16:05)
[2020-03-05] MEDS: *HR* Digoxin 0.125 MG TABLET PO SCH (08:02)
[2020-03-05] MEDS: Heparin 25,000UNIT/250ML 1/2NS 25,000 UNIT/250 ML IV.SOLN IVC SCH (16:06)
[2020-03-05] MEDS ORDERED: predniSONE 20 MG TABLET PO ONE (21:00)
[2020-03-06 06:56] LABS: Hematocrit 39.9 % (37.5-50.1); Hemoglobin 13.1 g/dL (12.9-16.9); Mean Corpuscular HGB Conc 32.8 g/dL (31.6-35.5); Mean Corpuscular Hemoglobin 30.8 pg (28.0-33.3); Mean Corpuscular Volume 93.9 fL (83.0-100.0); Mean Platelet Volume 9.8 fL (9.4-12.4); Platelet Count 160 K/mcL (140-400); Red Blood Count 4.25 M/mcL (4.19-5.50); Red Cell Distribution Width 12.6 % (11.5-14.5); White Blood Count 7.6 K/mcL (4.3-11.1)
[2020-03-06 07:14] LABS: BUN/Creatinine Ratio 18 (6-26); Blood Urea Nitrogen 21 mg/dL (8-23); Calcium 9.3 mg/dL (8.6-10.3); Carbon Dioxide 25 mEq/L (23-29); Chloride 105 mEq/L (98-107); Glucose 256 mg/dL (70-105); Osmolality,Calculated 294 (280-300); Potassium 4.4 mEq/L (3.5-5.1); Sodium 136 mEq/L (136-145); eGFR For African Americans > 60 (> 60); eGFR For Non-African Americans 60 (> 60)
[2020-03-06] MEDS: Budesonide/Formoterol 160/4.5 1 PUFF INH IH SCH ×2 (07:44→22:06)
[2020-03-06] MEDS ORDERED: predniSONE 20 MG TABLET PO ONE ×2 (08:00→14:00)
[2020-03-06] MEDS: carvediloL 6.25 MG TABLET PO SCH ×2 (08:06→16:12)
[2020-03-06] MEDS: Cholecalciferol (D-3) 1,000 UNIT (25MCG) TABLET PO SCH (08:06)
[2020-03-06] MEDS: *HR* Digoxin 0.125 MG TABLET PO SCH (08:06)
[2020-03-06] MEDS: Aspirin 81 MG TAB.CHEW PO SCH (08:06)
[2020-03-06] MEDS ORDERED: *HR* FentaNYL (PF) 100 MCG/2 ML VIAL ONE (16:24)
[2020-03-06] MEDS ORDERED: *HR* Midazolam HCl 2 MG/2 ML VIAL ONE (16:24)
[2020-03-06] MEDS ORDERED: *HR* Heparin 10,000 UNIT/10 ML VIAL ONE (16:25)
[2020-03-06] MEDS ORDERED: Heparin 1,000 UNITS/500 mL 500 ML ONE (16:25)
[2020-03-06] MEDS ORDERED: ISOVUE-370 200 ML INFUS..BTL ONE (16:25)
[2020-03-06] MEDS ORDERED: 0.9 % Sodium Chloride 1,000 ML ONE (16:25)
[2020-03-06] MEDS ORDERED: Nitroglycerin 1,000 MCG/10 ML VIAL IV ONE (16:26)
[2020-03-06] MEDS: Heparin 25,000UNIT/250ML 1/2NS 25,000 UNIT/250 ML IV.SOLN IVC SCH (18:16)
[2020-03-06] MEDS: 0.9 % Sodium Chloride 1,000 ML IVC SCH (18:38)
[2020-03-07] MEDS: 0.9 % Sodium Chloride 1,000 ML IVC SCH (05:31)
[2020-03-07 07:46] VITALS: BP 116/70
[2020-03-07] MEDS: Budesonide/Formoterol 160/4.5 1 PUFF INH IH SCH (07:55)
[2020-03-07] MEDS: Cholecalciferol (D-3) 1,000 UNIT (25MCG) TABLET PO SCH (09:31)
[2020-03-07] MEDS: *HR* Digoxin 0.125 MG TABLET PO SCH (09:31)
[2020-03-07] MEDS: Aspirin 81 MG TAB.CHEW PO SCH (09:31)
[2020-03-07] MEDS: carvediloL 6.25 MG TABLET PO SCH (09:31)
== END 2020-03-07 11:11 | disposition home or self-care (01) | DRG 287 ==
LOC: 3BNU 15:39 → EMEROOARM 15:39 → 3BNU 20:47
PROVIDERS: ADMIT Family Medicine; ATTEND Family Medicine